=== PATIENT | male | born 1960 | race Caucasian/White ===

== ENCOUNTER 2018-05-31 14:32 | Inpatient (IN) ==
[2018-05-31] MEDS ORDERED: Sod Chloride 0.9% Inj 1,000 ML IV.SIG ONE (15:14)
--- NOTE | 2018-05-31 15:20 | ED ---
HPI General Chief Complaint: Abdominal Pain Stated Complaint: ABD pain Time Seen by Provider: 05/31/18 14:57 Source: patient Mode of arrival: ambulatory Limitations: no limitations History of Present Illness complaint: abdominal pain Onset (ago): day(s) (2) Pain Consistency: constant Location: diffuse Severity: mild Severity scale (1-10): 2 Radiation: none Migration to: no migration Relieving factors: nothing Exacerbating factors: nothing Associated symptoms: nausea, vomiting and anorexia Related Data Home Medications Medication Instructions Recorded Confirmed atorvastatin 05/29/18 05/29/18 atorvastatin 80 mg PO DAILY 05/29/18 05/29/18 lisinopril-hydrochlorothiazide 1 tab PO DAILY 05/29/18 05/29/18 metoprolol tartrate 50 mg PO BID 05/29/18 05/29/18 Previous Rx's Medication Instructions Recorded ondansetron [Zofran ODT] 4 mg PO TID PRN 3 Days #10 tab 05/30/18 Allergies Allergy/AdvReac Type Severity Reaction Status Date / Time No Known Allergies Allergy Uncoded 11/11/15 17:43 Review of Systems ROS: all other systems reviewed are negative PENDING SALE TO [facility] Medical History Medical History Hyperlipidemia (Chronic) Hypertension (Chronic) AMI (acute myocardial infarction) (Resolved) Social History Social History Substance History: Active Abuse Second Hand Smoke Exposure: No Smoking Status: Former smoker Tobacco Type: Cigarettes How Often Do You Have a Drink Containing Alcohol: Monthly or less Recent Travel in [facility] within the Last 8 Weeks: No Recent Out of Country Travel within the Last 8 Weeks: No Substance Abuse Detail Marijuana: Substance Use Status: Active Route Used Substance Abuse: Inhalation Reason for Use: Calm Down Immunization History Tetanus Immunization: Unsure Hx Influenza Vaccine This Season: Yes Exam Const General: cooperative, healthy appearing, comfortable, no acute distress, well developed and well groomed Orientation: alert, awake and oriented x3 HENMT Head: normal to inspection, normocephalic and atraumatic Mouth: moist mucous membranes Eyes Conjunctivae: conjunctivae normal Sclera: sclerae normal EOM: EOM intact bilaterally Neck Neck: normal visual inspection and full ROM Chest Chest: normal inspection of the chest Resp Effort & Inspection: normal respiratory effort and able to speak in complete sentences Auscultation: clear to auscultation bilaterally Cardio Rate: regular rate Rhythm: regular rhythm GI Inspection: normal to inspection Palpation: soft and nontender Auscultation: normal bowel sounds Back/Spine/Pelvis Cervical Spine: cervical ROM normal Thoracic/Lumbar Spine: thoraco-lumbar ROM normal Skin General: no rashes or lesions noted and turgor normal Neuro General: alert, awake, oriented x3, moves all extremities and CN's II-XI intact bilaterally Extrem General: normal to inspection and full ROM Psych Appearance: grossly normal Mental Status: mental status grossly normal Speech and Movement: speech and movement normal Mood: congruent mood Affect: normal affect Attitude: cooperative Thought Process: normal Thought Content: normal Judgment: judgment good Course Consultations Consultation #1: Dr. Espinoza Time: 19:07 Initial Documented Vital Signs Temperature 97.9 F 05/31/18 14:43 Pulse Rate 72 05/31/18 14:43 Respiratory Rate 16 05/31/18 14:43 Blood Pressure 141/88 H 05/31/18 14:43 Pulse Oximetry 98 05/31/18 14:43 Last Documented Vital Signs Temperature 97.9 F 05/31/18 14:43 Pulse Rate 73 05/31/18 18:50 Respiratory Rate 18 05/31/18 18:50 Blood Pressure 177/98 H 05/31/18 18:50 Pulse Oximetry 96 05/31/18 18:50 Medical Decision Making [facility] Narrative Medical decision making narrative: This patient presents with a 3 day history of minimal, diffuse abdominal pain associated with anorexia and scant vomiting. His abdominal exam is unremarkable. He appears well-hydrated. The patient denies any history of alcohol abuse. He has never been told that he has any problems with his gallbladder. He does have a history of hyperlipidemia. Medical Screen Exam Complete: Yes Emergency Medical Condition: Yes Differential Diagnosis Differential Diagnosis: Differential diagnosis of abdominal pain includes but is not limited to gastritis, pancreatitis, hepatitis, gastroenteritis, constipation, urinary retention, peptic ulcer disease, diverticulitis or appendicitis Lab Data Lab results reviewed: Yes I reviewed the patient's lab results. Lab results narrative: I have ordered a CT of his abdomen and pelvis for further evaluation of pancreatitis. Result diagrams: 05/31/18 15:20 05/31/18 15:20 Lab Results 05/31/18 05/31/18 Range/Units 15:20 15:20 WBC 10.7 (4.0-11.0) th/mm3 RBC 5.26 (4.50-5.90) mil/mm3 Hgb 16.4 (13.0-17.0) gm/dL Hct 47.2 (39.0-51.0) % MCV 89.6 (80.0-100.0) fL MCH 31.1 (27.0-34.0) pg MCHC 34.7 (32.0-36.0) % RDW 13.1 (11.6-17.2) % Plt Count 214 (150-450) th/mm3 MPV 9.5 (7.0-11.0) fL Neut % (Auto) 81.8 H (16.0-70.0) % Lymph % (Auto) 11.6 (9.0-44.0) % [place] % (Auto) 6.5 (0.0-8.0) % Eos % (Auto) 0.0 (0.0-4.0) % Baso % (Auto) 0.1 (0.0-2.0) % Neut # (Auto) 8.8 H (1.8-7.7) th/mm3 Lymph # (Auto) 1.2 (1.0-4.8) th/mm3 [place] # (Auto) 0.7 (0.0-0.9) th/mm3 Eos # (Auto) 0.0 (0.0-0.4) th/mm3 Baso # (Auto) 0.0 (0.0-0.2) th/mm3 WBC Differential . Differential Comment Auto diff final Sodium 137 (136-145) meq/L Potassium 3.5 (3.5-5.1) meq/L Chloride 98 (98-107) meq/L Carbon Dioxide 28.2 (21.0-32.0) meq/L Anion Gap 11 (5-15) meq/L BUN 18 (7-18) mg/dL Creatinine 1.19 (0.60-1.30) mg/dL Random Glucose 101 (74-106) mg/dL Calcium 9.4 (8.5-10.1) mg/dL Total Bilirubin 0.6 (0.2-1.0) mg/dL AST 30 (15-37) U/L ALT 35 (12-78) U/L Alkaline Phosphatase 79 (45-117) U/L Total Protein 7.9 (6.4-8.2) g/dL Albumin 4.4 (3.4-5.0) g/dL Lipase 2785 H (73-393) U/L Imaging Data Radiologist's impression: Abdomen/Pelvis CT 05/31/18 16:26 CONCLUSION: Colonic diverticuli and left renal cyst not significantly changed. Discharge Plan Discharge Disposition Patient Disposition: 30 Still Patient Discharge Details Diagnosis: Abdominal pain, Acute pancreatitis Physicians Team ED Provider: Hollie Carrington Primary Care Provider: Shawn Ta V Rxs /Orders / Referrals /Forms Prescriptions: No Action atorvastatin 80 mg Tablet 80 mg PO DAILY RF: 0 metoprolol tartrate 50 mg Tablet 50 mg PO BID RF: 0 lisinopril-hydrochlorothiazide 10-12.5 mg Tablet 1 tab PO DAILY RF: 0 atorvastatin RF: 0 ondansetron [Zofran ODT] 4 mg tablet,disintegrating 4 mg PO TID PRN (Reason: nausea and vomiting) 3 Days Qty: 10 RF: 0 Status ED Status: With Doctor
[2018-05-31 15:55] LABS: Baso % (Auto) 0.1 % (0.0-2.0); Hematocrit 47.2 % (39.0-51.0); Hemoglobin 16.4 gm/dL (13.0-17.0); Lymph # (Auto) 1.2 th/mm3 (1.0-4.8); Lymph % (Auto) 11.6 % (9.0-44.0); Mean Corpuscular HGB Conc 34.7 % (32.0-36.0); Mean Corpuscular Hemoglobin 31.1 pg (27.0-34.0); Mean Corpuscular Volume 89.6 fL (80.0-100.0); Mean Platelet Volume 9.5 fL (7.0-11.0); Mono # (Auto) 0.7 th/mm3 (0.0-0.9); Mono % (Auto) 6.5 % (0.0-8.0); Neut # (Auto) 8.8 th/mm3 (1.8-7.7); Neut % (Auto) 81.8 % (16.0-70.0); Platelet Count 214 th/mm3 (150-450); Red Blood Count 5.26 mil/mm3 (4.50-5.90); Red Cell Distribution Width 13.1 % (11.6-17.2); White Blood Count 10.7 th/mm3 (4.0-11.0)
[2018-05-31 16:10] LABS: Alanine Aminotransferase 35 U/L (12-78); Albumin 4.4 g/dL (3.4-5.0); Anion Gap 11 meq/L (5-15); Aspartate Aminotransferase 30 U/L (15-37); Blood Urea Nitrogen 18 mg/dL (7-18); Calcium 9.4 mg/dL (8.5-10.1); Carbon Dioxide 28.2 meq/L (21.0-32.0); Chloride 98 meq/L (98-107); Glucose,Random 101 mg/dL (74-106); Potassium 3.5 meq/L (3.5-5.1); Sodium 137 meq/L (136-145)
[2018-05-31 16:13] LABS: Alkaline Phosphatase 79 U/L (45-117); Lipase 2785 U/L (73-393); Total Protein 7.9 g/dL (6.4-8.2)
[2018-05-31] MEDS ORDERED: Pantoprazole Inj 40 MG Vial IV.PUSH ONE (18:22)
--- NOTE | 2018-05-31 18:51 | CT ---
EXAM DATE: 05/31/2018 6:40 PM EDT AGE/SEX: 57 years / Male INDICATIONS: Abdomen pain. CLINICAL DATA: This is the patient's initial encounter. Patient reports that signs and symptoms have been present for 1 day and indicates a pain score of 5/10. MEDICAL/SURGICAL HISTORY: Cardiovascular disease. Hypertension. None. ORAL CONTRAST: No oral contrast ingested. RADIATION DOSE: 6.64 CTDI (mGy) COMPARISON: [facility] [place]EL[place] W [place]AST, 05/29/2018. . TECHNIQUE: Multiple contiguous axial images were obtained through the abdomen and pelvis following b olus infusion of 100 ml Omnipaque 350 (iohexol) nonionic water-soluble contrast as a single exam do se. No oral contrast ingested. Using automated exposure control and adjustment of the mA and/or kV a ccording to patient size, radiation dose was kept as low as reasonably achievable to obtain optimal d iagnostic quality images. DICOM format image data is available electronically for review and compari son. FINDINGS: Abdomen CT: The liver, spleen, pancreas, right kidney, adrenals are unremarkable. There is no evidence for any ap preciable pathological adenopathy, free fluid, or bowel obstruction. There is vicarious excretion of contrast into the gallbladder. Approximate 2.4 cm cyst left kidney. There are atherosclerotic calcifications involving the aorta and iliac arteries chronic in nature. Pelvic CT: There is no evidence for mass, abscess formation, or any significant adenopathy within the pelvis. T here are scattered diverticuli within the colon mainly the sigmoid colon without signs of diverticuli tis for technique. There may be hydrocele within the left scrotal sac. The appendix appears intact f or technique without signs of appendicitis. CONCLUSION: Colonic diverticuli and left renal cyst not significantly changed. Electronically signed by: Kate Loza MD 05/31/2018 6:50 PM EDT
[2018-05-31] MEDS ORDERED: HYDROmorphone PF Inj 2 MG/ML Vial IV.PUSH PRN (19:02)
[2018-05-31] MEDS ORDERED: Sod Chloride 0.9% Inj 1,000 ML IV.SIG SCH (19:15)
[2018-05-31 19:31] LABS: Bilirubin,Urine Negative (Negative); Clarity,Urine Clear (Clear); Color,Urine Yellow (Yellw/Straw); Glucose,Urine (UA) Negative (Negative); Leukocyte Esterase,Urine Negative (Negative); Mucus,Urine Few /lpf (Occasional); Nitrite,Urine Negative (Negative); Specific Gravity,Urine 1.013 (1.002-1.035)
[2018-05-31] MEDS ORDERED: Morphine Inj 4 MG/ML Vial IV.PUSH PRN (21:00)
[2018-05-31] MEDS ORDERED: Acetaminophen 325 MG Tablet PO PRN (21:18)
[2018-05-31] MEDS: Temazepam 15 MG Capsule PO PRN (21:43)
[2018-05-31] MEDS: Metoprolol Tartrate 50 MG Tablet PO SCH (21:52)
--- NOTE | 2018-05-31 22:18 | XR ---
EXAM DATE: 05/31/2018 10:06 PM EDT AGE/SEX: 57 years / Male INDICATIONS: Cough and shortness of breath. CLINICAL DATA: This is the patient's subsequent encounter. Patient reports that signs and symptoms h ave been present for 3 days and indicates a pain score of 0/10. MEDICAL/SURGICAL HISTORY: Hypertension. Cardiovascular disease. Myocardial infarction. . Marcelo nary stent. [place] [facility] [place]. . FINDINGS: The lungs are clear without infiltrate, nodule, or mass. There is no appreciable pleural effusion for technique. Heart and mediastinum are unremarkable. CONCLUSION: No acute cardiopulmonary disease. Electronically signed by: Kate Loza MD 05/31/2018 10:17 PM EDT
[2018-06-01] MEDS: Metoprolol Tartrate 50 MG Tablet PO SCH ×3 (07:25→20:00)
[2018-06-01] MEDS: amLODIPine 5 MG Tablet PO SCH ×2 (07:26→08:24)
--- NOTE | 2018-06-01 10:01 | P.HP ---
<Ursula Ackerman - Last Filed: 06/01/18 12:14> History of Present Illness Primary Care Physician: Shawn Ta MD Chief Complaint: abdominal pain x 3 History of Present Illness: This is 57 year old male patient with a past medical history which includes HTN , hyperlipidemia, CAD, history of ETOH abuse who presents to the ER with mild to moderate constant midepigastric abdominal pain which has been present for the past 3 days. Patient also endorses associated N/V and anorexia. Patient denies fevers, chills, shortness of breath or chest pain. Chest X-Ray 05/31/18 No acute cardiopulmonary disease. Abdomen/Pelvis CT Colonic diverticuli and left renal cyst not significantly changed. Lipase 2785 on admission - Diagnosis (1) Acute pancreatitis Inpatient Certification: I certify that the inpatient services were ordered in accordance with Medicare regulations governing the order. This includes certification that hospital inpatient services are reasonable and necessary and in the case of services not specified as inpatient-only under 42 CFR 419.22(n), that they are appropriately provided as inpatient services in accordance to with the 2-midnight benchmark under 43 CFR 412.3(e) Estimated Total Length of Stay (Days): 3 Plans for Post Hospital Care: Home Review of Systems All other systems reviewed negative except as stated in [facility]PI [facility] - History History Provided By: Patient, Significant Other - Medical History Medical History: Medical History (Last Reviewed 05/31/18 @ 21:09 by Adriana Lux RN) Hyperlipidemia Hypertension AMI (acute myocardial infarction) - Surgical History Surgical History: Surgical History (Last Reviewed 05/31/18 @ 21:09 by Adriana Lux RN) S/P coronary artery stent placement - Tobacco History Second Hand Smoke Exposure: No Tobacco Use In Past 30 Days: No Smoking Status: Former smoker Tobacco Type: Cigarettes - Alcohol History How Often Do You Have a Drink Containing Alcohol: Monthly or less - Substance Use History Substance History: Active Abuse - Substance Use Type Marijuana Status: Active Route Used: Inhalation Reason for Use: Calm Down - Travel History Recent Travel in the [place] Within the Last 8 Weeks: No Recent Travel Out of the Country Within the Last 8 Weeks: No - Immunization History Tetanus Immunization: Unsure Hx Influenza Vaccine This Season: Yes Medications and Allergies Allergies Allergy/AdvReac Type Severity Reaction Status Date / Time No Known Allergies Allergy Verified 05/31/18 21:10 Home Medications Medication Instructions Recorded Confirmed Type atorvastatin 75 mg PO DAILY 05/29/18 05/31/18 History metoprolol tartrate 50 mg PO BID 05/29/18 05/31/18 History amlodipine 2.5 mg PO DAILY 05/31/18 05/31/18 History aspirin 81 mg PO DAILY 05/31/18 05/31/18 History lisinopril-hydrochlorothiazide 20 mg PO DAILY 05/31/18 05/31/18 History Active Medications: Active Medications Acetaminophen (Tylenol) 650 mg PO Q4H PRN PRN Reason: PAIN SCALE 1 TO 3 MILD Hydrocodone Bitart/Acetaminophen (Model 5/325) 1 tab PO Q4H PRN PRN Reason: PAIN SCALE 4 TO 6 MODERATE Last Admin: 06/01/18 07:25 Dose: 1 tab Amlodipine Besylate (Norvasc) 2.5 mg PO DAILY COUNT INCLUDES THE [facility] Last Admin: 06/01/18 08:24 Dose: Not Given Aspirin (Aspirin Chew) 81 mg PO DAILY COUNT INCLUDES THE [facility] Last Admin: 06/01/18 08:23 Dose: Not Given Atorvastatin Calcium (Lipitor) 75 mg PO DAILY COUNT INCLUDES THE [facility] Last Admin: 06/01/18 08:24 Dose: Not Given Clonidine HCl (Catapres) 0.2 mg PO Q6H PRN PRN Reason: SBP>160, DBP>90 Enalaprilat (Vasotec Inj) 2.5 mg IV.PUSH Q6H PRN PRN Reason: SYS BP GREATER THAN 160 MMHG Sodium Chloride (Ns Inj) 1,000 mls @ 0 mls/hr IV.SIG BOLUS COUNT INCLUDES THE [facility] Potassium Chloride/Sodium Chloride (Ns + Kcl 20 Meq Inj) 1,000 mls @ 84 mls/hr IV.CONT .[id number] COUNT INCLUDES THE [facility] Last Admin: 06/01/18 08:24 Dose: Not Given Metoprolol Tartrate (Lopressor) 50 mg PO BID COUNT INCLUDES THE [facility] Last Admin: 06/01/18 08:24 Dose: Not Given Miscellaneous (Pill Splitter) 1 each OTHER UNSCH PRN PRN Reason: SEE LABEL COMMENTS Morphine Sulfate (Morphine Inj) 5 mg IV.PUSH Q3H PRN PRN Reason: PAIN SCALE 7 TO 10 SEVERE Ondansetron HCl (Zofran Inj) 4 mg IV.PUSH Q6H PRN PRN Reason: NAUSEA Last Admin: 06/01/18 03:51 Dose: 4 mg Sodium Chloride (Ns Flush) 2 ml IV.FLUSH BID COUNT INCLUDES THE [facility] Last Admin: 06/01/18 08:24 Dose: Not Given Sodium Chloride (Ns Flush) 2 ml IV.FLUSH PRN PRN PRN Reason: FLUSH AFTER USING IV ACCESS Temazepam (Restoril) 30 mg PO HS PRN PRN Reason: INSOMNIA Last Admin: 05/31/18 21:43 Dose: 30 mg Exam Vital signs: Vital Signs 05/31/18 14:43 05/31/18 14:48 05/31/18 18:50 Temperature 97.9 F Pulse Rate 72 79 73 Respiratory Rate 16 18 18 Blood Pressure 141/88 H 157/94 H 177/98 H Pulse Oximetry 98 99 96 05/31/18 20:30 06/01/18 00:00 06/01/18 04:00 Temperature 97.7 F 98.2 F 98.5 F Pulse Rate 68 70 63 Respiratory Rate 18 18 18 Blood Pressure 155/91 H 150/92 H 149/85 H Pulse Oximetry 98 95 96 06/01/18 06:42 06/01/18 07:23 06/01/18 08:24 Temperature 98.1 F Pulse Rate 78 Respiratory Rate 17 18 17 Blood Pressure 166/98 H Pulse Oximetry 98 Intake & Output 05/31/18 06/01/18 06/01/18 18:59 06:59 18:59 Intake Total 1000 / 1000 704 / 704 Balance 1000 / 1000 704 / 704 Weight 63.503 kg 61.1 kg Intake: IV 1000 / 1000 704 / 704 NS + KCl 20 mEq Inj 1,000 ML @ 704 / 704 84 mls/hr IV.CONT .[id number] COUNT INCLUDES THE [facility] Rx#:[id number] Other: # Voids 1 Date of Last Bowel Movement 05/29/18 05/29/18 Weight On Admission 61.1 kg Narrative: GENERAL: This is a well-nourished, well-developed patient, in no apparent distress. CARDIOVASCULAR: Regular rate and rhythm RESPIRATORY: Clear to auscultation. Breath sounds equal bilaterally. GASTROINTESTINAL: Abdomen soft, non-tender, nondistended. Normal active bowel sounds MUSCULOSKELETAL: Extremities without clubbing, cyanosis, or edema. NEURO: Alert & Oriented x4 to person, place, time, situation. Moves all ext x4 Results - Labs CBC & Chem 7: 05/31/18 15:20 05/31/18 15:20 Labs: Laboratory Results - last 24 hr 05/31/18 05/31/18 05/31/18 15:20 15:20 15:20 WBC 10.7 RBC 5.26 Hgb 16.4 Hct 47.2 MCV 89.6 MCH 31.1 MCHC 34.7 RDW 13.1 Plt Count 214 MPV 9.5 Neut % (Auto) 81.8 H Lymph % (Auto) 11.6 [place] % (Auto) 6.5 Eos % (Auto) 0.0 Baso % (Auto) 0.1 Neut # (Auto) 8.8 H Lymph # (Auto) 1.2 [place] # (Auto) 0.7 Eos # (Auto) 0.0 Baso # (Auto) 0.0 WBC Differential . Differential Comment Auto diff final Sodium 137 Potassium 3.5 Chloride 98 Carbon Dioxide 28.2 Anion Gap 11 BUN 18 Creatinine 1.19 Random Glucose 101 Calcium 9.4 Total Bilirubin 0.6 AST 30 ALT 35 Alkaline Phosphatase 79 Total Protein 7.9 Albumin 4.4 Triglycerides 129 Lipase 2785 H Urine Color Urine Clarity Urine pH Ur Specific [place] Urine Protein Urine Glucose (UA) Urine Ketones Urine Occult Blood Urine Nitrate Urine Bilirubin Urine Urobilinogen Ur Leukocyte Esterase Urine RBC Urine WBC Urine Mucus Micro UA Comment Ur Microscopic Review Urine Culture Comments 05/31/18 06/01/18 18:50 05:19 WBC RBC Hgb Hct MCV MCH MCHC RDW Plt Count MPV Neut % (Auto) Lymph % (Auto) [place] % (Auto) Eos % (Auto) Baso % (Auto) Neut # (Auto) Lymph # (Auto) [place] # (Auto) Eos # (Auto) Baso # (Auto) WBC Differential Differential Comment Sodium Potassium Chloride Carbon Dioxide Anion Gap BUN Creatinine Random Glucose Calcium Total Bilirubin AST ALT Alkaline Phosphatase Total Protein Albumin Triglycerides Lipase 195 Urine Color Yellow Urine Clarity Clear Urine pH 7.0 Ur Specific [place] 1.013 Urine Protein Negative Urine Glucose (UA) Negative Urine Ketones Trace H Urine Occult Blood Small H Urine Nitrate Negative Urine Bilirubin Negative Urine Urobilinogen Less than 2 Ur Leukocyte Esterase Negative Urine RBC 3 Urine WBC Less than 1 Urine Mucus Few H Micro UA Comment Culture not ind Ur Microscopic Review Not Reportable Urine Culture Comments Culture not ind - Imaging Impressions Chest X-Ray 05/31/18 00:00 CONCLUSION: No acute cardiopulmonary disease. Abdomen/Pelvis CT 05/31/18 16:26 CONCLUSION: Colonic diverticuli and left renal cyst not significantly changed. Caprini VTE Risk Assessment Caprini VTE Risk Assessment: No/Low Risk (score <= 1) Caprini Risk Assessment Model: Point Value = 1 Point Value = 2 Point Value = 3 Point Value = 5 Age 41-60 Minor surgery BMI > 25 kg/m2 Swollen legs Varicose veins or History of unexplained or recurrent spontaneous Oral contraceptives or hormone replacement Sepsis (< 1 month) Serious lung disease, including pneumonia (< 1 month) Abnormal pulmonary function Acute myocardial infarction Congestive heart failure (< 1 month) History of inflammatory bowel disease Medical patient at bed rest Age 61-74 Arthroscopic surgery Major open surgery (> 45 min) Laparoscopic surgery (> 45 min) Malignancy Confined to bed (> 72 hours) Immobilizing plaster cast Central venous access Age >= 75 History of VTE Family history of VTE Factor V Leiden Prothrombin [id number] Lupus anticoagulant Anticardiolipin antibodies Elevated serum homocysteine Heparin-induced thrombocytopenia Other congenital or acquired thrombophilia Stroke (< 1 month) Elective arthroplasty Hip, pelvis, or leg fracture Acute spinal cord injury (< 1 month) Prophylaxis Regimen: Total Risk Factor Score Risk Level Prophylaxis Regimen 0-1 Low Early ambulation 2 Moderate Order ONE of the following: *Sequential Compression Device (SCD) *Heparin 5000 units SQ BID 3-4 Higher Order ONE of the following medications: *Heparin 5000 units SQ TID *Enoxaparin/Lovenox 40 mg SQ daily (WT < 150 kg, CrCl > 30 mL/min) *Enoxaparin/Lovenox 30 mg SQ daily (WT < 150 kg, CrCl > 10-29 mL/min) *Enoxaparin/Lovenox 30 mg SQ BID (WT < 150 kg, CrCl > 30 mL/min) AND/OR *Sequential Compression Device (SCD) 5 or more Highest Order ONE of the following medications: *Heparin 5000 units SQ TID (Preferred with Epidurals) *Enoxaparin/Lovenox 40 mg SQ daily (WT < 150 kg, CrCl > 30 mL/min) *Enoxaparin/Lovenox 30 mg SQ daily (WT < 150 kg, CrCl > 10-29 mL/min) *Enoxaparin/Lovenox 30 mg SQ BID (WT < 150 kg, CrCl > 30 mL/min) AND *Sequential Compression Device (SCD) Assessment and Plan - Assessment (1) Acute pancreatitis Code(s): K85.90 - Acute pancreatitis without necrosis or infection, unspecified Status: Acute Plan: Abdominal pain Acute pancreatitis This is 57 year old male patient with a past medical history which includes HTN , hyperlipidemia, CAD, history of ETOH abuse who presents to the ER with mild to moderate constant midepigastric abdominal pain which has been present for the past 3 days. Patient also endorses associated N/V and anorexia. Patient denies fevers, chills, shortness of breath or chest pain. - Chest X-Ray 05/31/18 No acute cardiopulmonary disease. - Abdomen/Pelvis CT Colonic diverticuli and left renal cyst not significantly changed. - visible pulsation epigastric area, patient quite thin, auscultated no bruit - Dr. Espinoza discussed with Dr. Colby Mccarty no evidence of aneurysm on CT abd/pelvis - Lipase 2785 on admission -> 195 () - Triglycerides 129, total bilirubin 0.6, AST 30, ALT 35, alp phos 79 - NPO initially patient's lipase and pain improved will start full liquid diet 9advance as tolerated. If patient able to tolerated diet plan to DC later today. - IVF - DC - Morphine as needed for pain HTN Continue home metoprolol 50 mg BID and amlodipine 2.5 mg daily Hyperlipidemia Continue home atorvastatin CAD Continue home atorvastatin, aspirin 81 mg daily and metoprolol 50 mg BID DVT prophylaxis with SCDs <Ori Espinoza - Last Filed: 06/01/18 16:27> History of Present Illness Primary Care Physician: Shawn Ta MD - Diagnosis (1) Acute pancreatitis Inpatient Certification: I certify that the inpatient services were ordered in accordance with Medicare regulations governing the order. This includes certification that hospital inpatient services are reasonable and necessary and in the case of services not specified as inpatient-only under 42 CFR 419.22(n), that they are appropriately provided as inpatient services in accordance to with the 2-midnight benchmark under 43 CFR 412.3(e) [facility] - Medical History Medical History: Medical History (Last Reviewed 05/31/18 @ 21:09 by Adriana Lux RN) Hyperlipidemia Hypertension AMI (acute myocardial infarction) - Surgical History Surgical History: Surgical History (Last Reviewed 05/31/18 @ 21:09 by Adriana Lux RN) S/P coronary artery stent placement Medications and Allergies Active Medications: Active Medications Acetaminophen (Tylenol) 650 mg PO Q4H PRN PRN Reason: PAIN SCALE 1 TO 3 MILD Hydrocodone Bitart/Acetaminophen (Model 5/325) 1 tab PO Q4H PRN PRN Reason: PAIN SCALE 4 TO 6 MODERATE Last Admin: 06/01/18 16:00 Dose: 1 tab Amlodipine Besylate (Norvasc) 2.5 mg PO DAILY COUNT INCLUDES THE [facility] Last Admin: 06/01/18 08:24 Dose: Not Given Aspirin (Aspirin Chew) 81 mg PO DAILY COUNT INCLUDES THE [facility] Last Admin: 06/01/18 08:23 Dose: Not Given Atorvastatin Calcium (Lipitor) 75 mg PO DAILY COUNT INCLUDES THE [facility] Last Admin: 06/01/18 08:24 Dose: Not Given Clonidine HCl (Catapres) 0.2 mg PO Q6H PRN PRN Reason: SBP>160, DBP>90 Enalaprilat (Vasotec Inj) 2.5 mg IV.PUSH Q6H PRN PRN Reason: SYS BP GREATER THAN 160 MMHG Flumazenil ([place]aze[place] Inj) 0.2 mg IV.PUSH Q1M PRN PRN Reason: OVERSEDATION Lorazepam (Ativan) 1 mg PO Q4H PRN PRN Reason: for CIWA 8-10 Lorazepam (Ativan) 2 mg PO Q2H PRN PRN Reason: for CIWA 11-14 Lorazepam (Ativan Inj) 2 mg IV.PUSH Q2H PRN PRN Reason: for CIWA 11-14 Lorazepam (Ativan Inj) 2 mg IV.PUSH Q1H PRN PRN Reason: for CIWA 15-20 Lorazepam (Ativan Inj) 2 mg IV.PUSH Q15M PRN PRN Reason: for CIWA > 20 Lorazepam (Ativan Inj) 1 mg IV.PUSH Q4H PRN PRN Reason: for CIWA 8-10 Metoprolol Tartrate (Lopressor) 50 mg PO BID COUNT INCLUDES THE [facility] Last Admin: 06/01/18 08:24 Dose: Not Given Miscellaneous (Pill Splitter) 1 each OTHER UNSCH PRN PRN Reason: SEE LABEL COMMENTS Morphine Sulfate (Morphine Inj) 5 mg IV.PUSH Q3H PRN PRN Reason: PAIN SCALE 7 TO 10 SEVERE Ondansetron HCl (Zofran Inj) 4 mg IV.PUSH Q6H PRN PRN Reason: NAUSEA Last Admin: 06/01/18 16:00 Dose: 4 mg Sodium Chloride (Ns Flush) 2 ml IV.FLUSH BID SERA Last Admin: 06/01/18 08:24 Dose: Not Given Sodium Chloride (Ns Flush) 2 ml IV.FLUSH PRN PRN PRN Reason: FLUSH AFTER USING IV ACCESS Temazepam (Restoril) 30 mg PO HS PRN PRN Reason: INSOMNIA Last Admin: 05/31/18 21:43 Dose: 30 mg Exam Vital signs: Vital Signs 05/31/18 18:50 05/31/18 20:30 06/01/18 00:00 Temperature 97.7 F 98.2 F Pulse Rate 73 68 70 Respiratory Rate 18 18 18 Blood Pressure 177/98 H 155/91 H 150/92 H Pulse Oximetry 96 98 95 06/01/18 04:00 06/01/18 06:42 06/01/18 07:23 Temperature 98.5 F 98.1 F Pulse Rate 63 78 Respiratory Rate 18 17 18 Blood Pressure 149/85 H 166/98 H Pulse Oximetry 96 98 06/01/18 08:24 06/01/18 11:37 06/01/18 16:00 Temperature 97.4 F L 97.9 F Pulse Rate 69 Respiratory Rate 17 18 Blood Pressure 163/87 H Pulse Oximetry 96 Intake & Output 05/31/18 06/01/18 06/01/18 18:59 06:59 18:59 Intake Total 1000 / 1000 1704 / 1704 Balance 1000 / 1000 1704 / 1704 Weight 63.503 kg 61.1 kg Intake: IV 1000 / 1000 1704 / 1704 NS + KCl 20 mEq Inj 1,000 ML @ 1704 / 1704 84 mls/hr IV.CONT .[id number] COUNT INCLUDES THE [facility] Rx#:[id number] Other: # Voids 1 Date of Last Bowel Movement 05/29/18 05/29/18 Weight On Admission 61.1 kg Results - Labs CBC & Chem 7: 05/31/18 15:20 05/31/18 15:20 Labs: Laboratory Results - last 24 hr 05/31/18 05/31/18 06/01/18 15:20 18:50 05:19 Triglycerides 129 Lipase 195 Urine Color Yellow Urine Clarity Clear Urine pH 7.0 Ur Specific [place] 1.013 Urine Protein Negative Urine Glucose (UA) Negative Urine Ketones Trace H Urine Occult Blood Small H Urine Nitrate Negative Urine Bilirubin Negative Urine Urobilinogen Less than 2 Ur Leukocyte Esterase Negative Urine RBC 3 Urine WBC Less than 1 Urine Mucus Few H Micro UA Comment Culture not ind Ur Microscopic Review Not Reportable Urine Culture Comments Culture not ind - Imaging Impressions Chest X-Ray 05/31/18 00:00 CONCLUSION: No acute cardiopulmonary disease. Abdomen/Pelvis CT 05/31/18 16:26 CONCLUSION: Colonic diverticuli and left renal cyst not significantly changed. Caprini VTE Risk Assessment Caprini Risk Assessment Model: Point Value = 1 Point Value = 2 Point Value = 3 Point Value = 5 Age 41-60 Minor surgery BMI > 25 kg/m2 Swollen legs Varicose veins or History of unexplained or recurrent spontaneous Oral contraceptives or hormone replacement Sepsis (< 1 month) Serious lung disease, including pneumonia (< 1 month) Abnormal pulmonary function Acute myocardial infarction Congestive heart failure (< 1 month) History of inflammatory bowel disease Medical patient at bed rest Age 61-74 Arthroscopic surgery Major open surgery (> 45 min) Laparoscopic surgery (> 45 min) Malignancy Confined to bed (> 72 hours) Immobilizing plaster cast Central venous access Age >= 75 History of VTE Family history of VTE Factor V Leiden Prothrombin [id number] Lupus anticoagulant Anticardiolipin antibodies Elevated serum homocysteine Heparin-induced thrombocytopenia Other congenital or acquired thrombophilia Stroke (< 1 month) Elective arthroplasty Hip, pelvis, or leg fracture Acute spinal cord injury (< 1 month) Prophylaxis Regimen: Total Risk Factor Score Risk Level Prophylaxis Regimen 0-1 Low Early ambulation 2 Moderate Order ONE of the following: *Sequential Compression Device (SCD) *Heparin 5000 units SQ BID 3-4 Higher Order ONE of the following medications: *Heparin 5000 units SQ TID *Enoxaparin/Lovenox 40 mg SQ daily (WT < 150 kg, CrCl > 30 mL/min) *Enoxaparin/Lovenox 30 mg SQ daily (WT < 150 kg, CrCl > 10-29 mL/min) *Enoxaparin/Lovenox 30 mg SQ BID (WT < 150 kg, CrCl > 30 mL/min) AND/OR *Sequential Compression Device (SCD) 5 or more Highest Order ONE of the following medications: *Heparin 5000 units SQ TID (Preferred with Epidurals) *Enoxaparin/Lovenox 40 mg SQ daily (WT < 150 kg, CrCl > 30 mL/min) *Enoxaparin/Lovenox 30 mg SQ daily (WT < 150 kg, CrCl > 10-29 mL/min) *Enoxaparin/Lovenox 30 mg SQ BID (WT < 150 kg, CrCl > 30 mL/min) AND *Sequential Compression Device (SCD) Assessment and Plan - Assessment (1) Acute pancreatitis Code(s): K85.90 - Acute pancreatitis without necrosis or infection, unspecified Status: Acute - Attending Attestation Patient examined. Assessment and plan formulated with Ursula Ackerman PA-C. I agree with the above. Lipase has normalized. Pt requesting diet. Will advance diet and discharge pt if he is able to tolerate diet. F/U with PCP in one week. Avoid alcohol. <Ursula Ackerman W - Last Filed: 06/01/18 12:14> (1) Acute pancreatitis Qualifiers: Pancreatitis type: unspecified pancreatitis type Acute pancreatitis complication: unspecified Qualified Code(s): K85.90 - Acute pancreatitis without necrosis or infection, unspecified <Ori Espinoza B - Last Filed: 06/01/18 16:27> (1) Acute pancreatitis Qualifiers: Pancreatitis type: unspecified pancreatitis type Acute pancreatitis complication: unspecified Qualified Code(s): K85.90 - Acute pancreatitis without necrosis or infection, unspecified
--- NOTE | 2018-06-01 12:44 | P.DS ---
Date of admission: 05/31/18 19:05 Primary care physician: Shawn Ta MD Attending physician on discharge: Ori Espinoza Anticipated date of discharge: 06/01/18 Brief History from admission: This is 57 year old male patient with a past medical history which includes HTN , hyperlipidemia, CAD, history of ETOH abuse who presents to the ER with mild to moderate constant midepigastric abdominal pain which has been present for the past 3 days. Patient also endorses associated N/V and anorexia. Patient denies fevers, chills, shortness of breath or chest pain. Chest X-Ray 05/31/18 No acute cardiopulmonary disease. Abdomen/Pelvis CT Colonic diverticuli and left renal cyst not significantly changed. Lipase 2785 on admission DS: Diagnosis - Discharge Diagnosis (1) Acute pancreatitis Status: Acute DS: Summary Hospital Course: Abdominal pain Acute pancreatitis This is 57 year old male patient with a past medical history which includes HTN , hyperlipidemia, CAD, history of ETOH abuse who presents to the ER with mild to moderate constant midepigastric abdominal pain which has been present for the past 3 days. Patient also endorses associated N/V and anorexia. Patient denies ETOH use, reports that he drinks 1-2 times per month. Patient denies recent ETOH use. Patient denies fevers, chills, shortness of breath or chest pain. - Chest X-Ray 05/31/18 No acute cardiopulmonary disease. - Abdomen/Pelvis CT Colonic diverticuli and left renal cyst not significantly changed. - visible pulsation epigastric area, patient quite thin, auscultated no bruit - Dr. Espinoza discussed with Dr. Colby Mccarty no evidence of aneurysm on CT abd/pelvis - Lipase 2785 on admission -> 195 () - Triglycerides 129, total bilirubin 0.6, AST 30, ALT 35, alp phos 79 - NPO initially patient's lipase and pain improved will start full liquid diet 9advance as tolerated. If patient able to tolerated diet plan to DC later today. - IVF - DC - Morphine as needed for pain HTN Continue home metoprolol 50 mg BID and amlodipine 2.5 mg daily Hyperlipidemia Continue home atorvastatin CAD Continue home atorvastatin, aspirin 81 mg daily and metoprolol 50 mg BID DVT prophylaxis with SCDs Patient will need to follow up with PCP and GI after DC - Time Spent with Patient Total time spent providing and/or coordinating discharge services: Greater than 30 minutes - Quality: VTE Deep Vein Thrombosis/Pulmonary Embolism Present on Admission: No Exam Vital signs: Vital Signs 05/31/18 14:43 05/31/18 14:48 05/31/18 18:50 Temperature 97.9 F Pulse Rate 72 79 73 Respiratory Rate 16 18 18 Blood Pressure 141/88 H 157/94 H 177/98 H Pulse Oximetry 98 99 96 05/31/18 20:30 06/01/18 00:00 06/01/18 04:00 Temperature 97.7 F 98.2 F 98.5 F Pulse Rate 68 70 63 Respiratory Rate 18 18 18 Blood Pressure 155/91 H 150/92 H 149/85 H Pulse Oximetry 98 95 96 06/01/18 06:42 06/01/18 07:23 06/01/18 08:24 Temperature 98.1 F Pulse Rate 78 Respiratory Rate 17 18 17 Blood Pressure 166/98 H Pulse Oximetry 98 06/01/18 11:37 Temperature 97.4 F L Pulse Rate 69 Respiratory Rate 18 Blood Pressure 163/87 H Pulse Oximetry 96 Intake & Output 05/31/18 06/01/18 06/01/18 18:59 06:59 18:59 Intake Total 1000 / 1000 1704 / 1704 Balance 1000 / 1000 1704 / 1704 Weight 63.503 kg 61.1 kg Intake: IV 1000 / 1000 1704 / 1704 NS + KCl 20 mEq Inj 1,000 ML @ 1704 / 1704 84 mls/hr IV.CONT .[id number] [facility] Rx#:[id number] Other: # Voids 1 Date of Last Bowel Movement 05/29/18 05/29/18 Weight On Admission 61.1 kg Narrative: GENERAL: This is a well-nourished, well-developed patient, in no apparent distress. CARDIOVASCULAR: Regular rate and rhythm RESPIRATORY: Clear to auscultation. Breath sounds equal bilaterally. GASTROINTESTINAL: Abdomen soft, non-tender, nondistended. Normal active bowel sounds MUSCULOSKELETAL: Extremities without clubbing, cyanosis, or edema. NEURO: Alert & Oriented x4 to person, place, time, situation. Moves all ext x4 Results Procedures completed during hospitalization: none Labs on day of discharge: Labs from last 24 hours 06/01/18 05/31/18 05/31/18 05:19 18:50 15:20 WBC RBC Hgb Hct MCV MCH MCHC RDW Plt Count MPV Neut % (Auto) Lymph % (Auto) [place] % (Auto) Eos % (Auto) Baso % (Auto) Neut # (Auto) Lymph # (Auto) [place] # (Auto) Eos # (Auto) Baso # (Auto) WBC Differential Differential Comment Sodium Potassium Chloride Carbon Dioxide Anion Gap BUN Creatinine Random Glucose Calcium Total Bilirubin AST ALT Alkaline Phosphatase Total Protein Albumin Triglycerides 129 Lipase 195 Urine Color Yellow Urine Clarity Clear Urine pH 7.0 Ur Specific [place] 1.013 Urine Protein Negative Urine Glucose (UA) Negative Urine Ketones Trace H Urine Occult Blood Small H Urine Nitrate Negative Urine Bilirubin Negative Urine Urobilinogen Less than 2 Ur Leukocyte Esterase Negative Urine RBC 3 Urine WBC Less than 1 Urine Mucus Few H Micro UA Comment Culture not ind Ur Microscopic Review Not Reportable Urine Culture Comments Culture not ind 05/31/18 05/31/18 15:20 15:20 WBC 10.7 RBC 5.26 Hgb 16.4 Hct 47.2 MCV 89.6 MCH 31.1 MCHC 34.7 RDW 13.1 Plt Count 214 MPV 9.5 Neut % (Auto) 81.8 H Lymph % (Auto) 11.6 [place] % (Auto) 6.5 Eos % (Auto) 0.0 Baso % (Auto) 0.1 Neut # (Auto) 8.8 H Lymph # (Auto) 1.2 [place] # (Auto) 0.7 Eos # (Auto) 0.0 Baso # (Auto) 0.0 WBC Differential . Differential Comment Auto diff final Sodium 137 Potassium 3.5 Chloride 98 Carbon Dioxide 28.2 Anion Gap 11 BUN 18 Creatinine 1.19 Random Glucose 101 Calcium 9.4 Total Bilirubin 0.6 AST 30 ALT 35 Alkaline Phosphatase 79 Total Protein 7.9 Albumin 4.4 Triglycerides Lipase 2785 H Urine Color Urine Clarity Urine pH Ur Specific [place] Urine Protein Urine Glucose (UA) Urine Ketones Urine Occult Blood Urine Nitrate Urine Bilirubin Urine Urobilinogen Ur Leukocyte Esterase Urine RBC Urine WBC Urine Mucus Micro UA Comment Ur Microscopic Review Urine Culture Comments - Impressions ITS Impressions Chest X-Ray 05/31/18 00:00 CONCLUSION: No acute cardiopulmonary disease. Abdomen/Pelvis CT 05/31/18 16:26 CONCLUSION: Colonic diverticuli and left renal cyst not significantly changed. Discharge Plan - Discharge Disposition Patient Disposition: Discharge Home - Discharge Condition Condition: Stable - Discharge Details Anticipated Discharge Date: 06/01/18 - Physicians Team Primary Care Provider: Shawn Ta V Attending Provider: Ori Espinoza
[2018-06-01] MEDS ORDERED: LORazepam 1 MG Tablet PO PRN (12:45)
[2018-06-01] MEDS: Temazepam 15 MG Capsule PO PRN (21:58)
[2018-06-02 06:34] LABS: Baso % (Auto) 0.4 % (0.0-2.0); Eos % (Auto) 0.4 % (0.0-4.0); Hematocrit 46.9 % (39.0-51.0); Lymph # (Auto) 1.8 th/mm3 (1.0-4.8); Lymph % (Auto) 18.5 % (9.0-44.0); Mean Corpuscular HGB Conc 34.2 % (32.0-36.0); Mean Corpuscular Hemoglobin 30.9 pg (27.0-34.0); Mean Corpuscular Volume 90.5 fL (80.0-100.0); Mono # (Auto) 0.8 th/mm3 (0.0-0.9); Mono % (Auto) 8.8 % (0.0-8.0); Neut # (Auto) 6.9 th/mm3 (1.8-7.7); Neut % (Auto) 71.9 % (16.0-70.0); Platelet Count 193 th/mm3 (150-450); Red Blood Count 5.19 mil/mm3 (4.50-5.90); Red Cell Distribution Width 12.9 % (11.6-17.2); White Blood Count 9.6 th/mm3 (4.0-11.0)
[2018-06-02 06:56] LABS: Alanine Aminotransferase 28 U/L (12-78); Albumin 3.9 g/dL (3.4-5.0); Alkaline Phosphatase 81 U/L (45-117); Anion Gap 9 meq/L (5-15); Aspartate Aminotransferase 18 U/L (15-37); Blood Urea Nitrogen 16 mg/dL (7-18); Calcium 8.5 mg/dL (8.5-10.1); Carbon Dioxide 28.2 meq/L (21.0-32.0); Chloride 98 meq/L (98-107); Glomerular Filtration Rate 77 mL/min (>89); Glucose,Random 86 mg/dL (74-106); Lipase 784 U/L (73-393); Potassium 3.4 meq/L (3.5-5.1); Sodium 135 meq/L (136-145); Total Protein 7.3 g/dL (6.4-8.2)
--- NOTE | 2018-06-02 08:56 | P.PNIM ---
Subjective Interval history: pt unable to urinate this AM. says his bladder feels full. very uncomfortable. Physical Exam Vital signs: Vital Signs 06/01/18 11:37 06/01/18 16:00 06/01/18 20:00 Temperature 97.4 F L 97.9 F 97.8 F Pulse Rate 69 73 Respiratory Rate 18 17 Blood Pressure 163/87 H 137/78 Pulse Oximetry 96 95 06/02/18 00:00 Temperature 97.9 F Pulse Rate 68 Respiratory Rate 17 Blood Pressure 134/68 Pulse Oximetry 95 Intake & Output 06/01/18 06/02/18 06/02/18 18:59 06:59 18:59 Intake Total 1704 / 1704 Balance 1704 / 1704 Weight 61.1 kg Intake: IV 1704 / 1704 NS + KCl 20 mEq Inj 1,000 ML @ 1704 / 1704 84 mls/hr IV.CONT .[id number] [facility] Rx#:[id number] Other: Date of Last Bowel Movement 05/29/18 05/29/18 heart reg lung cta abd s/bs/nd. mild tenderness over suprapubic region ext no edema Results - Labs CBC & Chem 7: 06/02/18 05:57 06/02/18 05:57 Laboratory Results - last 24 hr 06/02/18 06/02/18 05:57 05:57 WBC 9.6 RBC 5.19 Hgb 16.0 Hct 46.9 MCV 90.5 MCH 30.9 MCHC 34.2 RDW 12.9 Plt Count 193 MPV 9.0 Neut % (Auto) 71.9 H Lymph % (Auto) 18.5 [place] % (Auto) 8.8 H Eos % (Auto) 0.4 Baso % (Auto) 0.4 Neut # (Auto) 6.9 Lymph # (Auto) 1.8 [place] # (Auto) 0.8 Eos # (Auto) 0.0 Baso # (Auto) 0.0 WBC Differential . Differential Comment Auto diff final Sodium 135 L Potassium 3.4 L Chloride 98 Carbon Dioxide 28.2 Anion Gap 9 BUN 16 Creatinine 1.00 Estimated GFR 77 L Random Glucose 86 Calcium 8.5 D Total Bilirubin 0.9 AST 18 ALT 28 Alkaline Phosphatase 81 Total Protein 7.3 D Albumin 3.9 Lipase 784 H - Imaging Impressions Abdomen/Pelvis CT 05/31/18 16:26 CONCLUSION: Colonic diverticuli and left renal cyst not significantly changed. Assessment and Plan - Assessment (1) Acute pancreatitis Code(s): K85.90 - Acute pancreatitis without necrosis or infection, unspecified Status: Acute Plan: Abdominal pain Acute pancreatitis This is 57 year old male patient with a past medical history which includes HTN , hyperlipidemia, CAD, history of ETOH abuse who presents to the ER with mild to moderate constant midepigastric abdominal pain which has been present for the past 3 days. Patient also endorses associated N/V and anorexia. Patient denies fevers, chills, shortness of breath or chest pain. - Chest X-Ray 05/31/18 No acute cardiopulmonary disease. - Abdomen/Pelvis CT Colonic diverticuli and left renal cyst not significantly changed. - visible pulsation epigastric area, patient quite thin, auscultated no bruit - Dr. Espinoza discussed with Dr. Colby Mccarty no evidence of aneurysm on CT abd/pelvis - Lipase 2785 on admission - Triglycerides 129, total bilirubin 0.6, AST 30, ALT 35, alp phos 79 pt dc held yesterday. cont liquids. prn pain control. ivf pt reports inability to urinate this AM. bladder scan and place lakhani if needed. gives no hx of bph. HTN Continue home metoprolol 50 mg BID and amlodipine 2.5 mg daily Hyperlipidemia Continue home atorvastatin CAD Continue home atorvastatin, aspirin 81 mg daily and metoprolol 50 mg BID DVT prophylaxis with SCDs (1) Acute pancreatitis Qualifiers: Pancreatitis type: unspecified pancreatitis type Acute pancreatitis complication: unspecified Qualified Code(s): K85.90 - Acute pancreatitis without necrosis or infection, unspecified
[2018-06-02] MEDS: Metoprolol Tartrate 50 MG Tablet PO SCH ×2 (10:02→21:16)
[2018-06-02] MEDS: amLODIPine 5 MG Tablet PO SCH (10:03)
[2018-06-02 19:48] LABS: Bilirubin,Urine Negative (Negative); Clarity,Urine Clear (Clear); Color,Urine Straw (Yellw/Straw); Glucose,Urine (UA) Negative (Negative); Leukocyte Esterase,Urine Negative (Negative); Nitrite,Urine Negative (Negative); Specific Gravity,Urine 1.003 (1.002-1.035)
[2018-06-02] MEDS: Temazepam 15 MG Capsule PO PRN (23:51)
[2018-06-03 07:54] LABS: Anion Gap 10 meq/L (5-15); Blood Urea Nitrogen 10 mg/dL (7-18); Calcium 7.7 mg/dL (8.5-10.1); Carbon Dioxide 26.2 meq/L (21.0-32.0); Chloride 102 meq/L (98-107); Glucose,Random 80 mg/dL (74-106); Potassium 3.4 meq/L (3.5-5.1); Sodium 138 meq/L (136-145)
[2018-06-03 07:56] LABS: Lipase 1736 U/L (73-393)
[2018-06-03] MEDS: amLODIPine 5 MG Tablet PO SCH (09:08)
--- NOTE | 2018-06-03 09:08 | P.PNIM ---
Subjective Interval history: able to urinate tolerating clears. passed small bm doesn't feel ready to go home. Physical Exam Vital signs: Vital Signs 06/02/18 12:00 06/02/18 16:00 06/02/18 21:10 Temperature 97.7 F 98.5 F 98.9 F Pulse Rate 64 74 77 Respiratory Rate 16 16 18 Blood Pressure 150/86 H 164/85 H 174/98 H Pulse Oximetry 97 96 96 06/02/18 23:17 06/03/18 00:26 06/03/18 03:01 Temperature 98.1 F Pulse Rate 69 Respiratory Rate 18 17 17 Blood Pressure 167/96 H Pulse Oximetry 97 06/03/18 04:46 Temperature 97.9 F Pulse Rate 75 Respiratory Rate 18 Blood Pressure 154/55 H Pulse Oximetry 98 Intake & Output 06/02/18 06/03/18 06/03/18 18:59 06:59 18:59 Intake Total 970 / 970 510 / 510 Balance 970 / 970 510 / 510 Weight 61.1 kg Intake: IV 850 / 850 150 / 150 NS + KCl 20 mEq Inj 1,000 ML @ 850 / 850 150 / 150 100 mls/hr IV.CONT .Q10H [facility] Rx #:[id number] Oral 120 / 120 360 / 360 Other: # Voids 2 1 Date of Last Bowel Movement 05/29/18 # Bowel Movements 0 0 heart reg lung cta abd s/nt ext no edema Results - Labs CBC & Chem 7: 06/02/18 05:57 06/03/18 06:50 Laboratory Results - last 24 hr 06/02/18 06/03/18 16:30 06:50 Sodium 138 Potassium 3.4 L Chloride 102 Carbon Dioxide 26.2 Anion Gap 10 BUN 10 Creatinine 0.81 Random Glucose 80 Calcium 7.7 L D Lipase 1736 H Urine Color Straw Urine Clarity Clear Urine pH 6.0 Ur Specific [place] 1.003 Urine Protein Negative Urine Glucose (UA) Negative Urine Ketones Negative Urine Occult Blood Small H Urine Nitrate Negative Urine Bilirubin Negative Urine Urobilinogen Less than 2 Ur Leukocyte Esterase Negative Urine RBC Less than 1 Urine WBC Less than 1 Micro UA Comment Culture not ind Ur Microscopic Review Not Reportable Urine Culture Comments Culture not ind Assessment and Plan - Assessment (1) Acute pancreatitis Code(s): K85.90 - Acute pancreatitis without necrosis or infection, unspecified Status: Acute Plan: Abdominal pain Acute pancreatitis This is 57 year old male patient with a past medical history which includes HTN , hyperlipidemia, CAD, history of ETOH abuse who presents to the ER with mild to moderate constant midepigastric abdominal pain which has been present for the past 3 days. Patient also endorses associated N/V and anorexia. Patient denies fevers, chills, shortness of breath or chest pain. - Chest X-Ray 05/31/18 No acute cardiopulmonary disease. - Abdomen/Pelvis CT Colonic diverticuli and left renal cyst not significantly changed. - visible pulsation epigastric area, patient quite thin, auscultated no bruit - Dr. Espinoza discussed with Dr. Colby Mccarty no evidence of aneurysm on CT abd/pelvis - Lipase 2785 on admission - Triglycerides 129, total bilirubin 0.6, AST 30, ALT 35, alp phos 79 pt now able to urinate on his own tolerating clears. lipase trending up. cont clears and ivf today. instructed pt on increasing oob activity. HTN Continue home metoprolol 50 mg BID and amlodipine 2.5 mg daily Hyperlipidemia Continue home atorvastatin CAD Continue home atorvastatin, aspirin 81 mg daily and metoprolol 50 mg BID DVT prophylaxis with SCDs (1) Acute pancreatitis Qualifiers: Pancreatitis type: unspecified pancreatitis type Acute pancreatitis complication: unspecified Qualified Code(s): K85.90 - Acute pancreatitis without necrosis or infection, unspecified
[2018-06-03] MEDS: Metoprolol Tartrate 50 MG Tablet PO SCH ×2 (09:09→21:21)
[2018-06-03] MEDS: Lisinopril 10 MG Tablet PO SCH (21:21)
[2018-06-04] MEDS: Temazepam 15 MG Capsule PO PRN (00:16)
[2018-06-04] MEDS: Metoprolol Tartrate 50 MG Tablet PO SCH ×3 (09:30→20:09)
[2018-06-04] MEDS: amLODIPine 5 MG Tablet PO SCH (09:31)
[2018-06-04] MEDS: Lisinopril 10 MG Tablet PO SCH ×3 (09:31→20:09)
--- NOTE | 2018-06-04 09:52 | P.PNIM ---
Subjective Interval history: Pt denies any abd discomfort He did have some bloating last night Afebrile Denies any nausea/vomiting Physical Exam Vital signs: Vital Signs 06/03/18 12:00 06/03/18 16:00 06/03/18 19:53 Temperature 98.5 F 97.5 F L 98.2 F Pulse Rate 69 75 72 Respiratory Rate 18 16 18 Blood Pressure 169/90 H 105/68 171/94 H Pulse Oximetry 95 95 94 L 06/04/18 00:15 06/04/18 02:00 06/04/18 04:40 Temperature 98.7 F 98.6 F Pulse Rate 64 75 Respiratory Rate 18 17 18 Blood Pressure 169/85 H 141/89 H Pulse Oximetry 98 97 06/04/18 08:00 Temperature 97.3 F L Pulse Rate 73 Respiratory Rate 16 Blood Pressure 181/91 H Pulse Oximetry 95 Intake & Output 06/03/18 06/04/18 06/04/18 18:59 06:59 18:59 Intake Total 1480 / 1480 1960 / 1960 240 / 240 Balance 1480 / 1480 1960 / 1960 240 / 240 Weight 61.1 kg Intake: IV 1000 / 1000 1000 / 1000 NS + KCl 20 mEq Inj 1,000 ML @ 1000 / 1000 1000 / 1000 100 mls/hr IV.CONT .Q10H [facility] Rx #:[id number] Oral 480 / 480 960 / 960 240 / 240 Other: # Voids 3 4 Date of Last Bowel Movement 06/02/18 06/02/18 06/02/18 # Bowel Movements 0 Narrative: General: NAD, AAOx3 Chest: CTA Cardiac: Regular Abd: +BS, soft ND/NT Ext: No edema Results - Labs CBC & Chem 7: 06/02/18 05:57 06/03/18 06:50 Laboratory Results - last 24 hr 06/04/18 06:02 Lipase 2224 H - Imaging Chest X-Ray 05/31/18 00:00 CONCLUSION: No acute cardiopulmonary disease. Abdomen/Pelvis CT 05/31/18 16:26 CONCLUSION: Colonic diverticuli and left renal cyst not significantly changed. Assessment and Plan - Assessment (1) Acute pancreatitis Code(s): K85.90 - Acute pancreatitis without necrosis or infection, unspecified Status: Acute Plan: Abdominal pain Acute pancreatitis - This is 57 year old male patient with a past medical history which includes HTN, hyperlipidemia, CAD, history of ETOH abuse who presents to the ER with mild to moderate constant midepigastric abdominal pain which has been present for the past 3 days. Patient also endorses associated N/V and anorexia. Patient denies fevers, chills, shortness of breath or chest pain. - Chest X-Ray (05/31/18) -->No acute cardiopulmonary disease. - Abdomen/Pelvis CT (05/31/18) --> Colonic diverticula and left renal cyst not significantly changed. - visible pulsation epigastric area, patient quite thin, auscultated no bruit. Dr. Espinoza discussed with Dr. Colby Mccarty no evidence of aneurysm on CT abd/ pelvis - Lipase 2785 on admission - Triglycerides 129, total bilirubin 0.6, AST 30, ALT 35, alp phos 79 - Lipase had improved down to 195 on 06/01 but then started trending back up to 784 (06/02) --> 1736 (06/03) --> 2224 (06/04) - Check MRCP today - Cont clears and IVF. - Pt instructed on increasing oob activity. HTN - Continue home metoprolol 50 mg BID and amlodipine 2.5 mg daily Hyperlipidemia - Continue home atorvastatin CAD - Continue home atorvastatin, aspirin 81 mg daily and metoprolol 50 mg BID DVT prophylaxis with SCDs The exam, history, and the medical decision-making described in the above note were completed with the assistance of the mid-level provider. I reviewed and agree with the findings presented. I attest that I had a [id number] encounter with the patient on the same day, and personally performed and documented my assessment and findings in the medical record. (1) Acute pancreatitis Qualifiers: Pancreatitis type: unspecified pancreatitis type Acute pancreatitis complication: unspecified Qualified Code(s): K85.90 - Acute pancreatitis without necrosis or infection, unspecified
--- NOTE | 2018-06-04 17:37 | MR ---
EXAM DATE: 06/04/2018 5:31 PM EDT AGE/SEX: 57 years / Male INDICATIONS: Pancreatitis. CLINICAL DATA: This is the patient's initial encounter. Patient reports that signs and symptoms have been present for 3 days and indicates a pain score of 4/10. MEDICAL/SURGICAL HISTORY: Hypertension. Inguinal hernia repair. Coronary artery stent. [place] [facility] [place]/31/2018. . TECHNIQUE: Multiplanar, multisequence images of the abdomen were obtained without contrast including dedicated cholangiographic images. FINDINGS: Simple cyst left midpole kidney posteriorly measuring 2.5 cm. Right kidney, spleen, pancreas, gallbla dder, liver unremarkable. There is no biliary ductal dilatation. Common bile duct measures 2.4 mm in maximal dimension. No adenopathy or aneurysm. CONCLUSION: 1. Renal cyst. 2. Otherwise unremarkable. Electronically signed by: Colby Melvin MD 06/04/2018 5:36 PM EDT
[2018-06-05] MEDS: Temazepam 15 MG Capsule PO PRN (00:39)
[2018-06-05 06:39] LABS: Alanine Aminotransferase 24 U/L (12-78); Albumin 3.3 g/dL (3.4-5.0); Alkaline Phosphatase 74 U/L (45-117); Anion Gap 8 meq/L (5-15); Aspartate Aminotransferase 19 U/L (15-37); Blood Urea Nitrogen 11 mg/dL (7-18); Calcium 8.1 mg/dL (8.5-10.1); Carbon Dioxide 27.7 meq/L (21.0-32.0); Chloride 102 meq/L (98-107); Glomerular Filtration Rate 83 mL/min (>89); Glucose,Random 83 mg/dL (74-106); Lipase 526 U/L (73-393); Potassium 4.2 meq/L (3.5-5.1); Sodium 138 meq/L (136-145); Total Protein 6.5 g/dL (6.4-8.2)
[2018-06-05] MEDS: Lisinopril 10 MG Tablet PO SCH ×2 (09:57→21:32)
[2018-06-05] MEDS: Metoprolol Tartrate 50 MG Tablet PO SCH ×2 (09:58→21:33)
[2018-06-05] MEDS: amLODIPine 5 MG Tablet PO SCH (09:58)
--- NOTE | 2018-06-05 10:18 | P.PNIM ---
Subjective Interval history: pt denies abdomen pain or vomiting. wants to advance diet at dinner today. Physical Exam Vital signs: Vital Signs 06/04/18 12:00 06/04/18 20:00 06/05/18 00:00 Temperature 99.3 F 98.6 F 98.5 F Pulse Rate 67 74 70 Respiratory Rate 16 17 16 Blood Pressure 171/88 H 191/101 H 179/96 H Pulse Oximetry 98 97 97 06/05/18 04:00 Temperature 97.7 F Pulse Rate 64 Respiratory Rate 18 Blood Pressure 116/75 Pulse Oximetry 98 Intake & Output 06/04/18 06/05/18 06/05/18 18:59 06:59 18:59 Intake Total 1240 / 1240 1000 / 1000 Balance 1240 / 1240 1000 / 1000 Intake: IV 1000 / 1000 1000 / 1000 NS + KCl 20 mEq Inj 1,000 ML @ 1000 / 1000 1000 / 1000 100 mls/hr IV.CONT .Q10H [facility] Rx #:[id number] Oral 240 / 240 Other: Date of Last Bowel Movement 06/02/18 06/02/18 heart reg lung cta abd s/nt ext no edema Results - Labs CBC & Chem 7: 06/02/18 05:57 06/05/18 05:48 Laboratory Results - last 24 hr 06/05/18 05:48 Sodium 138 Potassium 4.2 D Chloride 102 Carbon Dioxide 27.7 Anion Gap 8 BUN 11 Creatinine 0.94 Estimated GFR 83 L Random Glucose 83 Calcium 8.1 L Total Bilirubin 0.7 AST 19 ALT 24 Alkaline Phosphatase 74 Total Protein 6.5 D Albumin 3.3 L Lipase 526 H - Imaging Impressions Cholangiopancreatography MRI 06/04/18 00:00 CONCLUSION: 1. Renal cyst. 2. Otherwise unremarkable. Assessment and Plan - Assessment (1) Acute pancreatitis Code(s): K85.90 - Acute pancreatitis without necrosis or infection, unspecified Status: Acute Plan: Abdominal pain Acute pancreatitis - This is 57 year old male patient with a past medical history which includes HTN, hyperlipidemia, CAD, history of ETOH abuse who presents to the ER with mild to moderate constant midepigastric abdominal pain which has been present for the past 3 days. Patient also endorses associated N/V and anorexia. Patient denies fevers, chills, shortness of breath or chest pain. - Chest X-Ray (05/31/18) -->No acute cardiopulmonary disease. - Abdomen/Pelvis CT (05/31/18) --> Colonic diverticula and left renal cyst not significantly changed. - visible pulsation epigastric area, patient quite thin, auscultated no bruit. Dr. Espinoza discussed with Dr. Colby Mccarty no evidence of aneurysm on CT abd/ pelvis - Lipase 2785 on admission - Triglycerides 129, total bilirubin 0.6, AST 30, ALT 35, alp phos 79 - Lipase had improved down to 195 on 06/01 but then started trending back up to 784 (06/02) --> 1736 (06/03) --> 2224 (06/04) after advancing diet. - Checked MRCP on 06/04...essentially negative for pancreas or liver pathology. - advance to softer food today and then decide on dc afterwards. - Pt instructed on increasing oob activity. HTN - Continue home metoprolol 50 mg BID and amlodipine 2.5 mg daily Hyperlipidemia - Continue home atorvastatin CAD - Continue home atorvastatin, aspirin 81 mg daily and metoprolol 50 mg BID DVT prophylaxis with SCDs (1) Acute pancreatitis Qualifiers: Pancreatitis type: unspecified pancreatitis type Acute pancreatitis complication: unspecified Qualified Code(s): K85.90 - Acute pancreatitis without necrosis or infection, unspecified
[2018-06-06] MEDS: Temazepam 15 MG Capsule PO PRN (00:06)
[2018-06-06] MEDS: amLODIPine 5 MG Tablet PO SCH (08:39)
[2018-06-06] MEDS: Metoprolol Tartrate 50 MG Tablet PO SCH (08:41)
[2018-06-06] MEDS: Lisinopril 10 MG Tablet PO SCH (08:41)
--- NOTE | 2018-06-06 10:54 | P.DS ---
<Laura Alvarez - Last Filed: 06/06/18 10:46> Date of admission: 05/31/18 19:05 Primary care physician: Shawn Ta MD Attending physician on discharge: Carson Kimble Anticipated date of discharge: 06/06/18 Brief History from admission: This is 57 year old male patient with a past medical history which includes HTN , hyperlipidemia, CAD, history of ETOH abuse who presents to the ER with mild to moderate constant midepigastric abdominal pain which has been present for the past 3 days. Patient also endorses associated N/V and anorexia. Patient denies fevers, chills, shortness of breath or chest pain. Chest X-Ray 05/31/18 No acute cardiopulmonary disease. Abdomen/Pelvis CT Colonic diverticuli and left renal cyst not significantly changed. Lipase 2785 on admission Patient update on day of discharge: Pt without any complaints of abd pain Tolerated soft diet without any nausea/vomiting Afebrile DS: Diagnosis - Discharge Diagnosis (1) Acute pancreatitis Status: Acute DS: Summary Hospital Course: Abdominal pain Acute pancreatitis - This is 57 year old male patient with a past medical history which includes HTN, hyperlipidemia, CAD, history of ETOH abuse who presented to the ER on with complaints of mild to moderate constant midepigastric abdominal pain x 3 days with associated N/V and anorexia. Chest X-Ray (05/31/18) -->No acute cardiopulmonary disease. Abdomen/Pelvis CT (05/31/18) --> Colonic diverticula and left renal cyst not significantly changed. At admission pt had a noted visible pulsation in the epigastric area, which was auscultated no bruit. Dr. Espinoza discussed with Dr. Colby Mccarty no evidence of aneurysm on CT abd/ pelvis. Lipase 2785 on admission. Cholesterol panel was checked and Triglycerides 129. LFTs at admission noted total bilirubin 0.6, AST 30, ALT 35, alp phos 79. Pt was made NPO and treated with IVF and pain control. The Lipase had improved down to 195 on 06/01 but then started trending back up to 784 (06/02) - -> 1736 (06/03) --> 2224 (06/04) after advancing diet. Checked MRCP on 06/04 which was essentially negative for pancreas or liver pathology. On 06/05 his Lipase improved back down to 526. Pt requested that his diet be advanced to softer food on 06/05. He tolerated this well. His repeat lipase on 06/06 showed a slight increase to 876 but pt clinically remained stable without any increased pain, N/ V. Pt instructed to maintain more of a liquid diet and avoid any high fat soft foods for the next few days. He is to followup with his PCP, Dr. Norm Ta, next week Pt is to followup with Dr. Saavedra at [facility] in 2 weeks. HTN - Continue home metoprolol 50 mg BID and amlodipine 2.5 mg daily Hyperlipidemia - Continue home atorvastatin CAD - Continue home atorvastatin, aspirin 81 mg daily and metoprolol 50 mg BID - Time Spent with Patient Total time spent providing and/or coordinating discharge services: Greater than 30 minutes - Quality: VTE Deep Vein Thrombosis/Pulmonary Embolism Present on Admission: No Exam Vital signs: Vital Signs 06/05/18 12:00 06/05/18 16:00 06/05/18 20:00 Temperature 98.2 F 98.2 F 99.1 F Pulse Rate 69 69 76 Respiratory Rate 18 18 20 Blood Pressure 165/86 H 165/86 H 183/88 H Pulse Oximetry 18 L 99 98 06/06/18 00:00 06/06/18 04:00 Temperature 98.3 F 97.9 F Pulse Rate 72 74 Respiratory Rate 20 20 Blood Pressure 167/90 H 172/95 H Pulse Oximetry 95 96 Intake & Output 06/05/18 06/06/18 06/06/18 18:59 06:59 18:59 Intake Total 1000 / 1000 1300 / 1300 Balance 1000 / 1000 1300 / 1300 Weight 61.1 kg Intake: IV 1000 / 1000 1000 / 1000 NS + KCl 20 mEq Inj 1,000 ML @ 1000 / 1000 1000 / 1000 100 mls/hr IV.CONT .Q10H SERA Rx #:[id number] Oral 300 / 300 Other: # Voids 3 Date of Last Bowel Movement 06/02/18 06/02/18 06/05/18 Results Procedures completed during hospitalization: None Labs on day of discharge: Labs from last 24 hours 06/06/18 06:04 Lipase 876 H - Impressions ITS Impressions Chest X-Ray 05/31/18 00:00 CONCLUSION: No acute cardiopulmonary disease. Abdomen/Pelvis CT 05/31/18 16:26 CONCLUSION: Colonic diverticuli and left renal cyst not significantly changed. Cholangiopancreatography MRI 06/04/18 00:00 CONCLUSION: 1. Renal cyst. 2. Otherwise unremarkable. <Carson Kimble - Last Filed: 06/06/18 10:59> Date of admission: 05/31/18 19:05 Primary care physician: Shawn Ta MD DS: Diagnosis - Discharge Diagnosis (1) Acute pancreatitis Status: Acute DS: Summary - Time Spent with Patient Total time spent providing and/or coordinating discharge services: Exam Vital signs: Vital Signs 06/05/18 12:00 06/05/18 16:00 06/05/18 20:00 Temperature 98.2 F 98.2 F 99.1 F Pulse Rate 69 69 76 Respiratory Rate 18 18 20 Blood Pressure 165/86 H 165/86 H 183/88 H Pulse Oximetry 18 L 99 98 06/06/18 00:00 06/06/18 04:00 Temperature 98.3 F 97.9 F Pulse Rate 72 74 Respiratory Rate 20 20 Blood Pressure 167/90 H 172/95 H Pulse Oximetry 95 96 Intake & Output 06/05/18 06/06/18 06/06/18 18:59 06:59 18:59 Intake Total 1000 / 1000 1300 / 1300 Balance 1000 / 1000 1300 / 1300 Weight 61.1 kg Intake: IV 1000 / 1000 1000 / 1000 NS + KCl 20 mEq Inj 1,000 ML @ 1000 / 1000 1000 / 1000 100 mls/hr IV.CONT .Q10H SERA Rx #:[id number] Oral 300 / 300 Other: # Voids 3 Date of Last Bowel Movement 06/02/18 06/02/18 06/05/18 Results Labs on day of discharge: Labs from last 24 hours 06/06/18 06:04 Lipase 876 H - Impressions ITS Impressions Chest X-Ray 05/31/18 00:00 CONCLUSION: No acute cardiopulmonary disease. Abdomen/Pelvis CT 05/31/18 16:26 CONCLUSION: Colonic diverticuli and left renal cyst not significantly changed. Cholangiopancreatography MRI 06/04/18 00:00 CONCLUSION: 1. Renal cyst. 2. Otherwise unremarkable. Discharge Plan - Discharge Order Discharge Orders: Discharge Order (Routine); Ordered 06/06/18 Ordered By: Laura Alvarez - Discharge Details Anticipated Discharge Date: 06/06/18 Discharge Comment: Followup with Dr. Ta next week, call for that appt. - Physicians Team Primary Care Provider: Shawn Ta V Attending Provider: Ori Espinoza [facility]iders[facility]
[2018-06-06 14:53] VITALS: BP 136/76; PULSE 91; RESP 16; TEMP 97.5; O2SAT 95
== END 2018-06-06 15:07 | disposition home or self-care (01) ==
LOC: NEPE 14:32 → NEDA 19:05 → N06 20:18
PROVIDERS: ADMIT Hospitalist; ATTEND Hospitalist